=== PATIENT | male | born 1975 | race Caucasian/White ===

== ENCOUNTER 2021-06-26 22:58 | Emergency (ER) | payer BC ==
[2021-06-26] MEDS ORDERED: LORazepam 1 MG Tab PO STA (23:27)
== END 2021-06-26 23:35 | disposition home or self-care (01) ==
LOC: FB.ED 22:58
DX: F41.9 Anxiety disorder, unspecified (principal); I10 Essential (primary) hypertension; Z79.899 Other long term (current) drug therapy
CPT/HCPCS: 99283; A9270; 99282